=== PATIENT | female | born 1940 | race Caucasian/White ===

== ENCOUNTER 2016-06-06 07:49 | Day surgery (SDC) | payer MEDICARE ==
[~2016-06-06 07:49] MED LIST: ACET500CAP PO; ADVAIR INH; ADVAIR250 INH; ALBUTEROL5 INH; APRES25 PO; APRES50 PO; ASAB PO; ATV1 PO; AZO-CRANBERY450 MG PO; B COMPLETE PO; B121000P IM; BISR PR; BL FLAX SEED1000 MG OR; CINNAMON; CINNAMON PLUS1 EACH PO; CINNAMON PO; CINNAMONPO PO; CLARIT10 PO; CLEOCIN300 MG PO; COZAAR100 MG PO; CYANO1000T PO; DIOVAN320 MG PO; DUONEB INH; EDECRIN 25 MG T25 MG PO; ELOCON CREAM 0.15 GM TOP; FERGON240 MG PO; FERRETTS325 MG PO; FERROUS GLUC325 MG PO; FERROUS GLUCONATE PO; FERROUS SULF325 M1 PO; FISH-EPA1000 MG PO; FOLIC ACID400 MC1 PO; FOLIC ACID800 MCG PO; FOLIC PO; FOSRENOL PO; HUMALOG SC; INSNOVR SC; IRON IV; IRON IV IV; IRON325 MG PO; ISORDIL20 PO; IVFLUCO200 IV; LANTUS SC; LEVAQUIN5T PO; LEVEMFLXPN SC; LEVEMIR SC; LEVOTHYROXIN50 MCG PO; LEVOTHYROXIN88 MCG PO; LIQUID TEARS OPH; LOP25 PO; LOP50 PO; LOSARTAN; LOZOLTAB PO; MIRALAXPKT OR; MIRALAXPKT PO; NOVOLOG SC; PAIN TOP; PAX20 PO; PAXIL30 MG PO; PRAVAC PO; PRAVACHOL40 MG PO; PRILO PO; PRILOSEC40 MG PO; PRIM50B PO; PROAIR HFA INH; PROAIR HFA PO; PROCRIT IM; PROCRIT SC; PROTONIX PO; PROVENTSOL INH; REFRES1 OP; REFRESH OP; REFRESH1 % OPH; REG5 PO; RENVELA800 MG PO; ROCALTROL0.25 MCG OR; ROCALTROL0.25 MCG PO; SB325 PO; SEVE800T PO; SOOTHE EYE DROPS OPH; SPIRIVA INH; SPIRO25 PO; SUPER B COMP PO; SYMBICORT 160/41 INH INH; SYN.05 PO; TEARS NATURA OPH; TOPROL XL PO; TOPXL50 PO; TRIAMCINOLONE C80 GM TOP; VANCO1P IM; VANCO1P IV; VICKS VAPO RUB TOP; VITAMIN B COMPLEX PO; VITAMIN B-121000 MC1 PO; VITAMIN B-121000 MC1 SL; VITAMIN D1000 UNI1 PO; VITAMIN D31000 UNIT PO; VITD PO; Z300 PO; ZANTAC 150 PO; ZANTAC150 MG PO; ZANTAC300 MG PO; ZEASORB-AF2 % TOP; ZENPEP5000 UNIT PO; [UNRECOGNIZED DRUG - OTHER] PO; [UNRECOGNIZED DRUG - OTHER] SC; [UNRECOGNIZED DRUG - REMARK] TOP
== END 2016-06-06 23:59 | disposition home or self-care (01) ==
LOC: DMU 07:49
PROVIDERS: Internal Medicine Gastroenterology
PROC: 0D20XUZ Change Feeding Device in Upper Intestinal Tract, External Approach (ICD-10-PCS; principal; 2016-06-06 08:00)
DX: Z46.59 Encounter for fitting and adjustment of other gastrointestinal appliance and device (principal); R10.33 Periumbilical pain; Z43.1 Encounter for attention to gastrostomy; Z91.040 Latex allergy status; Z88.0 Allergy status to penicillin

== ENCOUNTER 2016-06-18 11:57 | Emergency (ER) | payer MEDICARE ==
[2016-06-18 12:45] LABS: BASOPHILS 0.2 %; BASOPHILS ABSOLUTE 0.02 10/3/uL (0.0-0.16); EOSINOPHILS 0.8 %; EOSINOPHILS ABSOLUTE 0.09 10/3/uL (0.0-0.53); IMMATURE GRANULOCYTES 1.7 %; LYMPHOCYTES 6.3 %; LYMPHOCYTES ABSOLUTE 0.74 10/3/uL (0.67-4.30); MEAN CORPUS HGB CONC 32.1 g/dL (32.0-36.0); MEAN CORPUSCULAR HEMOGLOB 33.7 pg (26.0-34.0); MEAN PLATELET VOLUME 10.6 fL (9.2-13.0); MONOCYTES 11.2 %; MONOCYTES ABSOLUTE 1.32 10/3/uL (0.21-1.20); NEUTROPHILS 79.8 %; NEUTROPHILS ABSOLUTE 9.39 10/3/uL (2.02-8.40); RBC DISTRIBUTION WIDTH 16.3 % (12.0-16.0); RED CELL COUNT 3.15 10/6/uL (4.0-5.6); WHITE BLOOD CELLS 11.8 10/3/uL (4.5-10.5)
[2016-06-18 12:47] LABS: ER CBC TAT 0 Hrs 08 Mins; HEMOGLOBIN 10.6 g/dL (12.0-16.0); MANUAL DIFF NO %; MEAN CORPUSCULAR VOLUME 104.8 fL (80-100); PLATELET COUNT 218 10/3/uL (150-400)
[2016-06-18 12:54] LABS: INTERNATIONAL NORMAL RATI 1.1 UNITS (-); PARTIAL THROMBO TIME 28.3 SEC (22.5-37.2)
[2016-06-18 13:02] LABS: BUN (BLOOD UREA NITROGEN) 41 MG/DL (6-23); CALCIUM, SERUM 9.8 MG/DL (8.5-10.4); CHEST PAIN PROFILE TAT 0 Hrs 25 Mins; CHLORIDE, SERUM 96 MMOL/L (96-112); CO2 (CARBON DIOXIDE) 28 MMOL/L (24-34); CREATININE 3.48 MG/DL (0.55-1.02); GFR AFRICAN AMERICAN 14 ML/MIN (>=60); GFR NON AFRICAN AMERICAN 12 ML/MIN (>=60); GLUCOSE, SERUM 237 MG/DL (60-99); POTASSIUM, SERUM 4.1 MMOL/L (3.5-5.3); SODIUM, SERUM 136 MMOL/L (135-148); TROPONIN I 0.03 NG/ML (<0.05)
[2016-06-18 15:16] LABS: BE (BASE EXCESS) 1.5 MEQ/L (0 +/- 2.5); CARBOXYHEMOGLOBIN 1.3 % (0-3); HEMOBLOGIN CONTENT 10.4 G/DL (12-16); INSTRUMENT SERIAL # 8087; O2 CONTENT 14.6 VOL% (18-24); OPERATOR ID 14335; PCO2 (CO2 TENSION) 41 MMHG (35-45); PO2 (O2 TENSION) 146 MMHG (79-93); SAMPLE Arterial; pH 7.42 (7.37-7.43)
[2016-06-18 15:17] LABS: ALLENS TEST Pos
== END 2016-06-18 17:41 | disposition home or self-care (01) ==
LOC: ER 11:57
PROVIDERS: Emergency Medicine
DX: J30.2 Other seasonal allergic rhinitis (principal); J90 Pleural effusion, not elsewhere classified; J40 Bronchitis, not specified as acute or chronic; Z99.2 Dependence on renal dialysis; I12.9 Hypertensive chronic kidney disease with stage 1 through stage 4 chronic kidney disease, or unspecified chronic kidney disease; N18.9 Chronic kidney disease, unspecified; J44.9 Chronic obstructive pulmonary disease, unspecified; I50.9 Heart failure, unspecified; I48.91 Unspecified atrial fibrillation; E11.9 Type 2 diabetes mellitus without complications; Z87.891 Personal history of nicotine dependence; Z87.01 Personal history of pneumonia (recurrent); Z88.2 Allergy status to sulfonamides; Z88.0 Allergy status to penicillin; Z88.8 Allergy status to other drugs, medicaments and biological substances; Z79.82 Long term (current) use of aspirin; Z79.4 Long term (current) use of insulin; Z79.899 Other long term (current) drug therapy
CPT/HCPCS: 36600; 71020; 80048; 82805; 83735; 83880; 84484; 85025; 85610; 85730; 93005; 94640; 99284; A9270-GY

== ENCOUNTER 2016-07-05 14:03 | Inpatient (IN) | payer MEDICARE ==
--- NOTE | ~2016-07-05 | PREOPHP ---
PreOp History and Physical [facility] [address] [facility] [place]. [address] NAME: AMI DOBSON : 44 STATUS : [facility]#: [id number] AGE: 76 ADM/REG DATE : 07/05/16 MR#: [id number] REPORT SERV DATE: 07/05/16 DICTATED BY: ELVIA BRITO DATE: 07/05/16 REPORT STATUS : Draft TRANSCRIBED BY: KRISTINA DATE: 07/05/16 REASON FOR ADMISSION: 1. Altered mental status. 2. Myoclonic jerks. 3. Hyperkalemia; potassium mildly elevated at 5.1. PLAN: 1. Emergent hemodialysis today to control volume status and correct hyperkalemia. Today is a regular dialysis day. 2. Workup for altered mental status and myoclonic jerks. She will be seen by Neurology. Her Reglan has been placed on hold. She is also on additional antiparkinson medication, which we will hold. She saw Dr. Rodriguez this past and asked for an ammonia level to be drawn and is 38 and normal. We will have Neurology to see her as well. 3. The patient is a DNR by request of the family and if there is no improvement in overall condition in next 24 to 36 hours, we plan to move with hospice. 4. Type 2 diabetes. We will continue insulin regimen. She has recurrent aspiration and has a feeding tube. We will continue her tube feedings. 5. Hypertension. Continue her present antihypertensives. 6. We will continue sliding scale insulin. HISTORY OF PRESENT ILLNESS: History is obtained from the patient's family, unable to get a history from the patient. She is arousable, will attempt to follow simple commands, but is unable to communicate. She is a 76-year-old female, who has been on dialysis since January of last year. She has underlying cardiorenal syndrome and progressed to end-stage renal failure, has been dialyzing on Friday, Friday, and Friday at [place]. She apparently has developed a progressive decline in overall well being over the past four to six weeks culminating in altered mental status and progressive myoclonic jerks that were getting progressively worse. As a result, she saw Dr. Rodriguez in the office , who advised lab work to be performed but not sure as to what the cause of her trouble was. The patient's family brought her into the ER today as the symptoms worsened and her altered mentation continued to decline. According to the son, she has actually been able to ambulate some as of until this past Friday, although that is kind of difficult to comprehend how she could do this. No fever or chills reported. No history of trauma or fall, but she does describe according to the daughter some headaches that have been mainly in the left frontal area. No history of documented seizure-like activity. She has had tremors previously and has been seeing Dr. Rodriguez for this in the past but this is more prominent in the form of myoclonic jerks. PAST MEDICAL HISTORY: 1. End-stage renal failure. 2. Diastolic/systolic CHF. 3. Mitral regurgitation. 4. Recurrent aspiration pneumonia or MRSA sepsis. 5. Recurrent ESBL E coli UTI infections. 6. PEG tube placement. 7. Chronic atrial fibrillation, off Coumadin. PreOp History and Physical [address] [address] NAME: AMI DOBSON : 44 STATUS : [facility] ER PAT#: [id number] AGE: 76 ADM/REG DATE : 07/05/16 MR#: [id number] REPORT SERV DATE: 07/05/16 DICTATED BY: ELVIA BRITO DATE: 07/05/16 REPORT STATUS : Draft TRANSCRIBED BY: KRISTINA DATE: 07/05/16 8. Obstructive sleep apnea. 9. COPD. 10.Hypertension. 11.Diabetes. 12.Hypothyroidism. SOCIAL HISTORY: No recreational drug use. No smoking. No alcohol use. MEDICATIONS: Home medications have been reviewed and include long-acting insulins in the form of Lantus and Humalog. She is on Synthroid. She is on metoclopramide. She is on long acting metoprolol. ALLERGIES: INCLUDE ELIDA INHIBITORS, PENICILLIN, MACROLIDE, SULFA DRUGS, NIFEDIPINE, LASIX, AND VALACYCLOVIR. REVIEW OF SYSTEMS: As per the HPI. PHYSICAL EXAMINATION: GENERAL: She is a debilitated, elderly female, obese with obvious myoclonic jerks that are visible. She will open her eyes and attempt to follow commands but limited communication noted. VITAL SIGNS: Blood pressure is 122/69, heart rate was 116, and her temperature was 97.9. HEENT: Pupils are reacting to light. Oral mucosa was dry. There is no pharyngitis. She has these obvious myoclonic jerks, generalized upper and lower limbs. There is some rigidity to her muscle tone. There are no focal deficits. HEART: Heart sounds 1 and 2 are heard. No rub. CHEST: Clear to auscultation. She has a right IJ Perma-Cath. ABDOMEN: She has a PEG tube. There is no tenderness, guarding, or rebound. Bowel sounds are normal. EXTREMITIES: Peripheral edema 1+ is noted. She has a bruising on the left leg as well. DIAGNOSTIC DATA: CT scan of the head done in the ER shows no acute infarct, stable moderate atrophy and white matter disease noted. Sodium 133, potassium 5.1, chloride 95, CO2 27, BUN 71, creatinine 5.3, calcium is pending, hemoglobin is 10.8, hematocrit 33.2, white count 16.0, platelet count 205,000. MG/MODL Elvia Brito M.D. / [id number] CC: PreOp History and Physical [address] [address] NAME: AMI DOBSON : 42 STATUS : [facility] PAT#: [id number] AGE: 76 ADM/REG DATE : 07/05/16 MR#: [id number] REPORT SERV DATE: 07/05/16 DICTATED BY: ELVIA BRITO DATE: 07/05/16 REPORT STATUS : Draft TRANSCRIBED BY: MODL DATE: 07/05/16 DEYA TABARES
--- NOTE | ~2016-07-05 | CN ---
Consultation Report [facility] [address] [place]. [address] NAME: AMI CEJA : 44 STATUS : ADM IN PAT#: [id number] AGE: 76 ADM/REG DATE : 07/05/16 MR#: [id number] REPORT SERV DATE: 07/10/16 DICTATED BY: JEFF MARIN DATE: 07/10/16 REPORT STATUS : Draft TRANSCRIBED BY: MODRachel DATE: 07/10/16 GI CONSULTATION DATE OF CONSULTATION: 07/10/2016 REASON FOR CONSULTATION: Evaluation and management of leaking PEG tube as well as increased residuals. HISTORY OF PRESENT ILLNESS: Ms. Ceja is a 76-year-old female patient known to Dr. Rober Young, who presented to [facility] on 07/05/2016 with a chief complaint of altered mental status, myoclonic jerking as well as findings of hyperkalemia. She underwent emergent hemodialysis on the day of admission. She had a Neurology consult. She had been on a regimen of Reglan, which has been identified as potential cause for her tardive dyskinesia and jerking, it since has been discontinued. Her mental status is back to baseline per the daughter's report. She has a history of dysphagia being seen by Dr. Flores in 12/2015 with resultant PEG tube placement. She was seen by Dr. Young, 06/06/2016 for exchange of her PEG tube. He placed a 26-Ethiopian. This was done secondary to some leakage around it and just needing an all together new feeding tube placed. This was done without difficulty. Since that time the daughter states that she has had very minimal to none drainage from the tube. Since coming in, she has had increased drainage as well as residuals around 120 mL per the nurse that sits with the patient today. Her tube feedings have been held since yesterday. No abdominal imaging has been done. She has been placed on MiraLAX, which she typically takes in the outpatient setting. She, per the daughter, only had a very small bowel movement overnight. The patient denies any true abdominal discomfort. No nausea or vomiting has been reported. I have discussed with the patient as well as the patient's daughter, who is present at the bedside. We will have a portable KUB done. She has been started on MiraLAX and is to receive lactulose; however, we will increase her MiraLAX to twice a day as well as give her some Dulcolax suppositories. Once she has good bowel movements, we will resume her tube feeding. I did tighten the PEG tube flush to the skin if she needs something for prokinetic use we would try erythromycin. PAST MEDICAL HISTORY: End-stage renal disease, on dialysis; mitral regurgitation; aspiration pneumonia; status post PEG; MRSA sepsis; congestive heart failure, both diastolic and systolic; atrial fib; COPD; hypertension; type 2 diabetes; peripheral neuropathy; hypothyroidism. SOCIAL HISTORY: Past tobacco. No alcohol or illicits. SURGICAL HISTORY: Right shoulder surgery, left breast lumpectomy, hemothorax, drainage, PEG tube placement. FAMILY HISTORY: Noncontributory from a GI standpoint. ALLERGIES: CONSIST OF MONOPRIL, PENICILLIN, MACROLIDE ANTIBIOTICS, ADALAT, BRAN, LASIX, Consultation Report [address] [address] NAME: AMI CEJA : 44 STATUS : ADM IN [facility]#: [id number] AGE: 76 ADM/REG DATE : 07/05/16 MR#: [id number] REPORT SERV DATE: 07/10/16 DICTATED BY: JEFF MARIN DATE: 07/10/16 REPORT STATUS : Draft TRANSCRIBED BY: KRISTINA DATE: 07/10/16 BUMEX, VALACYCLOVIR, AND SULFA. HOME MEDICATIONS: Albuterol, Proventil, Zyloprim, liquid tears, aspirin, Symbicort, Apresoline, Levemir, Fosrenol, Synthroid, Ativan, Protonix, Paxil, MiraLAX, Pravachol, Mysoline, sodium bicarbonate, and triamcinolone cream. REVIEW OF SYSTEMS: 10-point review of systems obtained pertinent positives addressed in the history of present illness. PERTINENT LABORATORY DATA: Sodium 135, potassium is 4.9, BUN is 89, creatinine 6.04. White count 8.2, hemoglobin 11.2, hematocrit 35.2, platelet count 168 with an INR of 1.2. PHYSICAL EXAMINATION: VITAL SIGNS: Temperature 97.5, pulse 100, respirations 17, blood pressure 96/53. NEURO: Reveals a chronically ill-appearing obese female, resting in bed. Her eyes are open. She has a notable right-sided facial droop. GENERAL: She is cooperative. She is in no acute distress. She knows she is at [facility] and she recognizes her daughter. HEAD, EARS, EYES, NOSE, AND THROAT: Anicteric. Pupils equal, round, reactive to light and accommodation. Normocephalic, atraumatic. NECK: Supple neck. LUNGS: Coarse with central congestion and positive cough and nonproductive. CARDIOVASCULAR SYSTEM: Regular rate and rhythm. Tachycardic. ABDOMEN: Soft and obese. PEG tube site without drainage. No redness. No erythema. EXTREMITIES: She has upper and lower extremity ecchymosis. SKIN: Frail, but dry and intact. ASSESSMENT: 1. Dysphagia with percutaneous endoscopic gastrostomy, now leaking. 2. Increased tube feed residuals. 3. Constipation. 4. Tardive dyskinesia secondary to Reglan. 5. Obstructive sleep apnea, obesity Pickwickian syndrome. 6. End-stage renal disease, on hemodialysis. 7. Type 2 diabetes. PLAN: 1. Portal KUB. 2. Increase MiraLAX to twice a day. 3. Dulcolax suppository twice a day for 24 hours. 4. Resume tube feeding in the morning. Further recommendations to follow. Consultation Report [address] [place]. [address] NAME: AMI CEJA : 44 STATUS : ADM IN [facility]#: [id number] AGE: 76 ADM/REG DATE : 07/05/16 MR#: [id number] REPORT SERV DATE: 07/10/16 DICTATED BY: JEFF MARIN DATE: 07/10/16 REPORT STATUS : Draft TRANSCRIBED BY: KRISTINA DATE: 07/10/16 DEVONTE/KRISTINA LENNIE Zazueta / [id number] CC: Jerardo Mena Dale Ray
--- NOTE | ~2016-07-05 | DS ---
Discharge Summary [address] [facility]. [address] NAME: AMI DOBSON : 44 STATUS : DIS IN PAT#: [id number] AGE: 76 ADM/REG DATE : 07/05/16 MR#: [id number] REPORT SERV DATE: 08/01/16 DICTATED BY: JOSÉ MARCH DATE: 07/29/16 REPORT STATUS : Draft TRANSCRIBED BY: KRISTINA DATE: 07/29/16 Data Collection from hospitalization DISCHARGE DIAGNOSES: 1. End-stage renal disease. 2. Constipation. 3. Dysphagia. 4. Obstructive sleep apnea. 5. Obesity. 6. Type 2 diabetes mellitus. 7. Debility. 8. Hypertension. 9. Hypothyroidism. 10.Chronic obstructive pulmonary disease. 11.Chronic atrial fibrillation. 12.Mitral regurgitation. 13.Diastolic/systolic heart failure. CONSULTATIONS: Dr. Valeria Fernandez and Mino Perez. PROCEDURES: 1. CT scan of the brain without contrast, 07/05/2016. 2. MRI of the brain without contrast, 07/10/2016. 3. Contrast injection into the gastrostomy tube, 07/15/2016. 4. Electroencephalogram, 07/07/2016. MEDICATIONS: Zyloprim 300 mg with lunch, aspirin 81 mg daily, vitamin D 50,000 units every seven days, NovoLog injection insulin as instructed, Isordil 20 mg at 9 a.m., lactulose 30 mL daily-hold for loose stools, Fosrenol 500 mg twice a day, Synthroid 50 mcg daily, Lopressor 25 mg twice a day, Protonix 40 mg before breakfast, Paxil 20 mg with supper, MiraLAX one packet twice a day, Mysoline 50 mg twice a day, Symbicort two puffs via inhaler twice a day, DuoNebs 1 nebulized inhaler three times a day as needed, Proventil one nebulized inhaler every four hours as needed, Artificial Tears one drop at bedtime as needed, triamcinolone one application topically twice a day as needed. CONDITION ON DISCHARGE: Stable. DISPOSITION: The patient was discharged home to be followed by [facility]. HOSPITAL COURSE: This is a 76-year-old female who has been on dialysis since January of last year. She has underlying cardiorenal syndrome and had progressed to end-stage renal failure. She was dialyzing on Mondays, Wednesdays, and Fridays. She apparently developed a progressive decline in her overall well being over the past 4 to 6 weeks culminating in an altered mental status and progressive myoclonic jerks that were getting progressively worse. She saw Dr. Rodriguez in the office on prior to admission who advised lab work to be performed but was not sure as to what the cause of her trouble was. Her family brought her to the emergency room on the day of this admission as her symptoms worsened, and her altered mentation continued to decline. She has been able to ambulate some until Friday prior to Discharge Summary [address] [place]. [address] NAME: AMI DOBSON : 44 STATUS : DIS IN [facility]#: [id number] AGE: 76 ADM/REG DATE : 07/05/16 MR#: [id number] REPORT SERV DATE: 08/01/16 DICTATED BY: JOSÉ MARCH DATE: 07/29/16 REPORT STATUS : Draft TRANSCRIBED BY: KRISTINA DATE: 07/29/16 this admission. She had no documented seizure-like activity. She has had tremors previously and had seen Dr. Rodriguez for this in the past, but this was more prominent in the form of myoclonic jerks. CT scan of the head done in the emergency room showed no acute infarct, stable moderate atrophy, and white matter disease. She was admitted to the hospital at this time for further evaluation and treatment. Upon admission, her white blood cell count was 16. Creatinine level was 5.3. The following day, she was seen by Dr. Valeria Fernandez regarding abnormal jerking and to rule out seizures. The patient had been noncompliant in using her CPAP. She had tested positive for obstructive sleep apnea several years ago. She has no history of recent head trauma and no history of stroke or stroke-like symptoms. White count was 12.7. She has had a recent increase in the abnormal movements and myoclonic jerking. We were going to rule out myoclonic seizures versus tardive movement disorder secondary to Reglan-metoclopramide; however, in this patient in the setting of end-stage renal disease and electrolyte imbalance, she has an increased risk of developing abnormal movements and seizures. It appears that the patient is hypersomnolent. She does have severe obstructive sleep apnea. We would rule out hypoventilation syndrome-Pickwickian syndrome. IV Keppra was going to be started, and EEG was requested. Cogentin was started. On the , her myoclonus had improved. She was still somnolent. Metoprolol was decreased. EEG was performed. This was an abnormal EEG characterized by the presence of slowing and disorganization of cerebral activity and the presence of biphasic and triphasic waveforms suggestive of underlying metabolic encephalopathy. Intermittent sharp in appearance wave forms of low voltage were seen during sleep. This activity, however, did not correspond to myoclonic jerking that the patient was having. The patient appeared extremely somnolent throughout this study. This EEG was compatible with diffuse cerebral dysfunction suggestive of the presence of metabolic encephalopathy. On 07/08/2016, hemodialysis therapy was performed. She did have some constipation. There was some increased residual. She had no edema. Keppra was decreased. Reglan was stopped. She could follow simple commands. Some myoclonus was noted. She does have vitamin D deficiency. This was going to be replaced. It was felt that she would need to undergo an outpatient sleep study. It was felt that her current dyskinesia was secondary to Reglan. Keppra was continued. On 07/10/2016, an MRI of the brain without contrast was performed. There were stable mild chronic small vessel ischemic change and volume loss involving the supra and infratentorial compartment. No acute findings were seen. She did have a small bowel movement. Tap water enema was going to be given. There was a high residual in the PEG tube. She was seen by Mino Perez for evaluation and management of leaking PEG tube as well as increased residuals. Has a long history of dysphagia. The patient denied any true abdominal discomfort. No nausea or vomiting was reported. A portable KUB was going to be performed. The patient was started on MiraLAX and was going to receive lactulose. MiraLAX was going to be increased. She was going to be given some Dulcolax suppository. Once she has good bowel movements, we would resume her tube feedings. The PEG tube was tightened flush to the skin. If she needed something for prokinetic use, we would try erythromycin. Tube feedings would be resumed the following morning. She did complain of a headache. She seemed to be much more alert and awake. Her Keppra dose was increased. The next day, she seemed to be more awake. She was requesting water. Her KUB was negative. Her constipation had resolved. Tube feedings were restarted. Her PEG tube would be monitored for leakage. Discharge Summary [address] [place]. [address] NAME: AMI DOBSON : 44 STATUS : DIS IN PAT#: [id number] AGE: 76 ADM/REG DATE : 07/05/16 MR#: [id number] REPORT SERV DATE: 08/01/16 DICTATED BY: JOSÉ MARCH DATE: 07/29/16 REPORT STATUS : Draft TRANSCRIBED BY: KRISTINA DATE: 07/29/16 MRI of the brain had shown no acute events. Depakote was also being given. Thiamin was provided on 07/12/2016. There was no leaking from the PEG tube. Hemodialysis therapy was being performed. Beta rianna was added to her regimen. Myoclonus had improved with Depakote. IV Solu-Medrol continued as well as Keppra and Depakote for now. On 07/13/2016, she had no new complaints. She was having bowel movements. She had no edema. Solu-Medrol continued. Keppra was decreased. Depakote was discontinued. Prednisone was being given. Dr. Garza increased Keppra after Depakote was discontinued. She did not feel well in general. She was tolerating tube feedings. The patient did have some coughing overnight which resulted in dislodgement of the PEG tube. Steroid taper was going to be performed over the next couple of days. Supportive care continued. Cogentin was stopped. Prednisone was continued. Her prednisone was going to be decreased by 10 mg each week. She was tolerating tube feedings. Hemodialysis therapy continued. On 07/17/2016, white blood cell count had decreased with steroid taper. She would follow simple commands. She had 1 to 2+ edema. The tube began leaking out copious amounts of tube feedings. The PEG tube was removed, and a bandage was placed. A repeat swallow study was requested. The patient was too lethargic to participate in a bedside swallow study. On the , she did have some maroon stool. Hemoglobin level was 9.5. Protein pump inhibitor was increased. Stool studies were going to be checked. Discharge planning was performed. On 07/19/2016, she had good pain control. She had no edema. Bedside swallow study was performed by Speech/Language Pathology. She had overt signs and symptoms of aspiration with all oral trials. Aspiration precautions were in place. A referral was made to [facility]. Hospice services and philosophies were discussed. Everyone was in agreement for the patient to go home with hospice care. Discharge instructions were given. Due to her stable condition, she was discharged home to be followed by [facility]. Information collected by: Shelia Quintanilla I submit the above information as my discharge summary. ANTHONY/KRISTINA José March M.D. / [id number] CC: LENNIE Bocanegra [facility]
--- NOTE | ~2016-07-05 | EEG ---
Electroencephalogram [address] [place]. [address] NAME: AMI DOBSON : 44 STATUS : ADM IN PAT#: [id number] AGE: 76 ADM/REG DATE : 07/05/16 MR#: [id number] REPORT SERV DATE: 07/09/16 DICTATED BY: VALERIA RAYGOZA DATE: 07/09/16 REPORT STATUS : Draft TRANSCRIBED BY: KRISTINA DATE: 07/09/16 INTERPRETING PHYSICIAN: Valeria Raygoza MD, Neurology. REASON FOR EEG: Myoclonic jerking, rule out seizures. DESCRIPTION: 23 surface electrodes, 10-20 international placement was used. The patient was noted to be drowsy and asleep throughout the study. Photic stimulation was performed. Video monitoring was utilized. FINDINGS: The background activity consisted of moderate-voltage, poorly organized 6-8 cycles per second located in the posterior head regions. This activity did not attenuate very well with the eye opening maneuvers. Slower frequencies in the theta range were noted scattered throughout. The patient appeared to be asleep through most of the recording. Moderate amount of paroxysmal appearing, low-voltage, spike-like activity was seen in central regions. Photic stimulation seemed to accentuate this activity. Large amount of biphasic and triphasic waveforms was noted, suggestive of underlying metabolic encephalopathy. Intermittent myoclonic jerking was observed on the video monitor. These jerks, however, did not correspond to paroxysmal activity on the EEG. The patient's personnel monitor showed sinus tachycardia, heart rate of approximately 120 beats per minute. Moderate amount of low- voltage beta range activity was also seen scattered throughout. Intermittent sleep apnea was observed. IMPRESSION: ABNORMAL EEG CHARACTERIZED BY PRESENCE OF SLOWING AND DISORGANIZATION OF CEREBRAL ACTIVITY AND PRESENCE OF BIPHASIC AND TRIPHASIC WAVEFORMS, SUGGESTIVE OF UNDERLYING METABOLIC ENCEPHALOPATHY. INTERMITTENT [id number] WAVEFORMS OF LOW-VOLTAGE WERE SEEN DURING SLEEP. THIS ACTIVITY, HOWEVER, DID NOT CORRESPOND TO MYOCLONIC JERKING THAT THE PATIENT WAS HAVING. THE PATIENT APPEARED EXTREMELY SOMNOLENT THROUGHOUT THIS STUDY. THIS EEG IS COMPATIBLE WITH DIFFUSE CEREBRAL DYSFUNCTION, SUGGESTIVE OF PRESENCE OF METABOLIC ENCEPHALOPATHY. CLINICAL CORRELATION IS RECOMMENDED. RICK/KRISTINA Valeria Raygoza MD / [id number] CC: Jerardo Mena Dale Ray
--- NOTE | ~2016-07-05 | CN ---
Consultation Report [facility] [address] [place] [place]. [address] NAME: AMI DOBSON : 44 STATUS : ADM IN PAT#: [id number] AGE: 76 ADM/REG DATE : 07/05/16 MR#: [id number] REPORT SERV DATE: 07/06/16 DICTATED BY: VALERIA FERNANDEZ DATE: 07/06/16 REPORT STATUS : Draft TRANSCRIBED BY: MODRachel DATE: 07/06/16 NEUROLOGICAL EVALUATION DATE OF CONSULTATION: 07/06/2016 REASON FOR NEUROLOGICAL EVALUATION: Abnormal jerking, rule out seizures. HISTORY OF PRESENT ILLNESS: This is a 76-year-old female with known history of end-stage renal disease, on hemodialysis; history of diabetes mellitus with neurological complication of severe neuropathy; history of probable obstructive sleep apnea, noncompliant with CPAP; severe obesity, who was admitted with altered mental status and recurrent episodes of jerking of her muscles. The patient's family noted in the last two weeks, the patient has had uncontrollable jerking, which involved intermittently her arms and occasionally arms and legs. At that time, the patient appears to be "normal." These episodes have not lessened. The patient has been on Reglan since December of last year. The patient has progressive decline in her health since December of last year. She has been placed on dialysis and has followed with [facility] in [place], [place]. The patient had seen Dr. Rodriguez from Neurology, who requested to check her ammonia level, which was done during this admission and was reported to be 38. As per son, the patient has been ambulating with help until last Friday; however, since then, has been mainly remaining in bed, sleeping on and off. The patient has been noncompliant with using of her CPAP, was tested for obstructive sleep apnea several years ago. The patient's several siblings have history of diabetes mellitus and extreme obesity. The sister who was present in the patient's room while the patient was being examined was also diagnosed with obstructive sleep apnea. As per the patient's son and her sister, there is no history of recent head trauma, no history of stroke or stroke- like symptoms. The patient has not been treated with any medications recently; however, has been persistently taking Reglan for her GI symptoms since last December. The patient's tremors have increased gradually until the patient started having myoclonic jerking in the past two to three weeks. PAST MEDICAL HISTORY: 1. End-stage renal disease, on hemodialysis. 2. Mitral regurgitation. 3. History of recurrent aspiration pneumonia. 4. MRSA sepsis. 5. Diastolic and systolic congestive heart failure. 6. The patient is status post PEG placement, chronic atrial fibrillation, has been off Coumadin, unclear why. 7. COPD. 8. Hypertension. 9. Diabetes mellitus with neurological complications, severe peripheral neuropathy. 10.History of hypothyroidism. SOCIAL HISTORY: Remote history of smoking 50 years ago. No history of alcohol use. Consultation Report [place] [id number] [facility] [place]. [address] NAME: AMI DOBSON : 44 STATUS : ADM IN [facility]#: [id number] AGE: 76 ADM/REG DATE : 07/05/16 MR#: [id number] REPORT SERV DATE: 07/06/16 DICTATED BY: VALERIA FERNANDEZ DATE: 07/06/16 REPORT STATUS : Draft TRANSCRIBED BY: KRISTINA DATE: 07/06/16 CURRENT MEDICATIONS: Include aspirin chewable 81 mg, insulin long-acting and short-acting, metoprolol, paroxetine 20 mg, levothyroxine 0.05 mg, isosorbide 20 mg p.o. once a day, allopurinol 100 mg p.o. daily. Reglan was discontinued yesterday. REVIEW OF SYSTEMS: As mentioned above. Rest of the review of systems included the patient having difficulty with her memory and occasional slurring of her speech. No weakness or numbness of her arms and legs was reported. The patient does have control of her bladder, although there was difficulty getting to the bathroom. The patient's weight has remained persistently high in the past several years. The patient has been on PEG tube feeding, and as per son, has gained a couple of pounds in the last two to three months. The rest of 14-point of review of system was negative. PHYSICAL EXAMINATION: GENERAL: The patient was somnolent, but aroused when stimulated, attempted to answer questions; however, would fall asleep intermittently. VITAL SIGNS: Show blood pressure 133/85, pulse was 119, temperature was 98.5, respirations 20. As per the patient's son, the patient's dry weight is 93 kg. The patient is approximately 5 feet 2 inches. HEAD AND NECK: Showed her to be normocephalic. There was no evidence of trauma. The patient's body habitus was compatible with Pickwickian appearance, truncal obesity, short stature, short neck. ENT: A very small airway, Mallampati class 4. EYE: Sclerae were not icteric. Conjunctivae were pink. ENT: As mentioned above. NECK: Supple. There was no Kernig or Brudzinski. Cervical range of motion was not impaired. CHEST: Symmetrical. LUNGS: Showed decreased breath sounds throughout. BREASTS: Not examined. ABDOMEN: Extremely obese, soft, nontender. Bowel sounds were hypoactive, but present. EXTREMITIES: Showed all of the areas of ecchymoses in distal legs and no significant edema was noted in the lower extremities. Peripheral pulses were decreased, but present. SKIN: As mentioned above. NEUROLOGICAL EXAMINATION: The patient was somnolent, but arousable. Oriented to self, partially oriented to place and partially oriented to time, recognized her son and her daughter by name. Conversation was limited as the patient was falling asleep continuously. Intermittent jerking movements were observed every 20 to 40 seconds involving arms and intermittently every couple of minutes a whole body jerk which appeared to be isolated, was observed. At that time, the patient would squint her eyes and would not answer the questions. Strength appeared intact throughout, although the patient had decreased mobility secondary to decreased cooperation from her mental status. Deep tendon reflexes were absent in lower extremities, trace in upper extremities. Sensory exam; the patient definitely had signs of profound peripheral neuropathy distally in the lower extremities. Cerebellar exam; the patient could not perform. Gait could not be tested. Consultation Report [place] [id number] [facility] [place]. [address] NAME: AMI DOBSON : 44 STATUS : ADM IN [facility]#: [id number] AGE: 76 ADM/REG DATE : 07/05/16 MR#: [id number] REPORT SERV DATE: 07/06/16 DICTATED BY: VALERIA FERNANDEZ DATE: 07/06/16 REPORT STATUS : Draft TRANSCRIBED BY: MODL DATE: 07/06/16 LABORATORY STUDIES: From today showed sodium of 142, potassium 4.1, chloride 105, BUN 36. Prior to dialysis yesterday, BUN was 71, BUN prior to dialysis was 5.32, after dialysis 3.75. Glomerular filtration rate prior to dialysis 9, after dialysis 13. Glucose 92, calcium 10.2, magnesium 2.6, and phosphorus 2.5. WBC count 12.7, hemoglobin 12.3, hematocrit 39.8, and platelet count 222,000. PT/INR was 1.2. IMPRESSION: Recent increase of abnormal movements and myoclonic jerking, rule out myoclonic seizures versus tardive movement disorder secondary to Reglan-metoclopramide; however, in this patient in the setting of end-stage renal disease and electrolyte imbalance, the patient has increased risk of developing abnormal movements and seizures. Severe obstructive sleep apnea, appears the patient is hypersomnolent, would rule out hypoventilation syndrome-Pickwickian syndrome. Congestive heart failure, end-stage renal disease, on hemodialysis. Would recommend to start the patient on Keppra 1000 mg b.i.d., IV infused now, until the patient is able to obtain an EEG and we will order it for today or tomorrow. Continue Keppra. Start Cogentin 0.5 mg p.o. b.i.d. via PEG tube 0.5 mg q.12 hours. Outpatient, repeat polysomnography study with CPAP or BiPAP titration, monitor for hypoxemia, and respiratory failure, morbid obesity, renal disease with complication of severe peripheral neuropathy. To follow with outpatient Neurology, Dr. Rodriguez. Thank you for allowing us to participate in this patient's care. RKA/MODL Valeria Fernandez MD / [id number] CC: Jerardo Mena DALE RAY
[2016-07-05 14:12] LABS: BASOPHILS 0.2 %; EOSINOPHILS 0.7 %; EOSINOPHILS ABSOLUTE 0.12 10/3/uL (0.0-0.53); ER CBC TAT 0 Hrs 03 Mins; HEMATOCRIT 33.2 % (36.0-48.0); HEMOGLOBIN 10.8 g/dL (12.0-16.0); IMMATURE GRANULOCYTES 0.8 %; IMMATURE GRANULOCYTES ABSOLUTE 0.13 10/3/uL (0.0-0.11); LYMPHOCYTES 6.1 %; LYMPHOCYTES ABSOLUTE 0.97 10/3/uL (0.67-4.30); MEAN CORPUS HGB CONC 32.5 g/dL (32.0-36.0); MEAN CORPUSCULAR HEMOGLOB 34.1 pg (26.0-34.0); MEAN CORPUSCULAR VOLUME 104.7 fL (80-100); MEAN PLATELET VOLUME 11.1 fL (9.2-13.0); MONOCYTES 2.9 %; MONOCYTES ABSOLUTE 0.46 10/3/uL (0.21-1.20); NEUTROPHILS 89.3 %; NEUTROPHILS ABSOLUTE 14.32 10/3/uL (2.02-8.40); PLATELET COUNT 205 10/3/uL (150-400); RBC DISTRIBUTION WIDTH 16.7 % (12.0-16.0); RED CELL COUNT 3.17 10/6/uL (4.0-5.6)
[2016-07-05 14:14] LABS: BASOPHILS ABSOLUTE 0.03 10/3/uL (0.0-0.16); MANUAL DIFF NO %
[2016-07-05 14:28] LABS: A/G RATIO 0.7 (0.7-1.9); ALBUMIN 2.8 G/DL (3.5-5.0); ALKALINE PHOSPHATASE 98 U/L (45-117); BUN (BLOOD UREA NITROGEN) 71 MG/DL (6-23); CALCIUM, SERUM 9.8 MG/DL (8.5-10.4); CHLORIDE, SERUM 95 MMOL/L (96-112); CO2 (CARBON DIOXIDE) 27 MMOL/L (24-34); CREATININE 5.32 MG/DL (0.55-1.02); DIRECT BILIRUBIN < 0.1 MG/DL (0.0-0.4); GFR AFRICAN AMERICAN 9 ML/MIN (>=60); GFR NON AFRICAN AMERICAN 7 ML/MIN (>=60); GLOBULIN 4.2 G/DL (2.5-4.1); GLUCOSE, SERUM 250 MG/DL (60-99); INDIRECT BILIRUBIN(NOT ORDER) 0.4 MG/DL (0.1-0.9); POTASSIUM, SERUM 5.1 MMOL/L (3.5-5.3); SGOT(AST) 33 U/L (5-40); SGPT(ALT) 18 U/L (5-65); SODIUM, SERUM 133 MMOL/L (135-148); TOTAL BILIRUBIN 0.5 MG/DL (0-1.2)
[2016-07-05 14:30] LABS: BAND NEUTROPHILS 1 %; EOSINOPHILS 1 %; EOSINOPHILS ABSOLUTE (CALC) 0.16 10/3/uL (0.0-0.53); ER DIFF TAT 0 Hrs 21 Mins; LYMPHOCYTES 4 %; LYMPHOCYTES ABSOLUTE (CALC) 0.64 10/3/uL (0.67-4.30); MACROCYTES 1+ (5-10/OIF) (0-5/OIF); MONOCYTES 6 %; MONOCYTES ABSOLUTE (CALC) 0.96 10/3/uL (0.21-1.20); NEUTROPHILS ABSOLUTE (CALC) 14.24 10/3/uL (2.02-8.40); PLATELET ESTIMATE ADQ (ADEQUATE); SEGMENTED NEUTROPHIL (0) 88 %; TOTAL NUCLEATED CELLS 100
[2016-07-06 08:33] LABS: BASOPHILS 0.2 %; BASOPHILS ABSOLUTE 0.02 10/3/uL (0.0-0.16); EOSINOPHILS 1.5 %; EOSINOPHILS ABSOLUTE 0.19 10/3/uL (0.0-0.53); HEMOGLOBIN 12.3 g/dL (12.0-16.0); IMMATURE GRANULOCYTES 0.6 %; IMMATURE GRANULOCYTES ABSOLUTE 0.08 10/3/uL (0.0-0.11); LYMPHOCYTES 6.2 %; LYMPHOCYTES ABSOLUTE 0.79 10/3/uL (0.67-4.30); MEAN CORPUS HGB CONC 30.9 g/dL (32.0-36.0); MEAN CORPUSCULAR HEMOGLOB 33.2 pg (26.0-34.0); MEAN CORPUSCULAR VOLUME 107.6 fL (80-100); MEAN PLATELET VOLUME 10.7 fL (9.2-13.0); MONOCYTES 13.8 %; MONOCYTES ABSOLUTE 1.74 10/3/uL (0.21-1.20); NEUTROPHILS 77.7 %; NEUTROPHILS ABSOLUTE 9.83 10/3/uL (2.02-8.40); PLATELET COUNT 222 10/3/uL (150-400); RBC DISTRIBUTION WIDTH 16.9 % (12.0-16.0); WHITE BLOOD CELLS 12.7 10/3/uL (4.5-10.5)
[2016-07-06 08:35] LABS: HEMATOCRIT 39.8 % (36.0-48.0); MANUAL DIFF NO %
[2016-07-06 08:41] LABS: INTERNATIONAL NORMAL RATI 1.2 UNITS (-); PROTIME (NOT ORD) 14.7 SEC (12.0-14.5)
[2016-07-06 08:51] LABS: ALBUMIN 3.2 G/DL (3.5-5.0); ALKALINE PHOSPHATASE 107 U/L (45-117); BUN (BLOOD UREA NITROGEN) 36 MG/DL (6-23); CALCIUM, SERUM 10.2 MG/DL (8.5-10.4); CHLORIDE, SERUM 105 MMOL/L (96-112); CO2 (CARBON DIOXIDE) 28 MMOL/L (24-34); CREATININE 3.75 MG/DL (0.55-1.02); DIRECT BILIRUBIN < 0.1 MG/DL (0.0-0.4); GFR AFRICAN AMERICAN 13 ML/MIN (>=60); GFR NON AFRICAN AMERICAN 11 ML/MIN (>=60); GLUCOSE, SERUM 92 MG/DL (60-99); INDIRECT BILIRUBIN(NOT ORDER) 0.4 MG/DL (0.1-0.9); PHOSPHORUS, SERUM 2.5 MG/DL (2.5-4.5); POTASSIUM, SERUM 4.1 MMOL/L (3.5-5.3); SGOT(AST) 15 U/L (5-40); SGPT(ALT) 18 U/L (5-65); SODIUM, SERUM 142 MMOL/L (135-148); TOTAL BILIRUBIN 0.5 MG/DL (0-1.2); TOTAL PROTEIN 7.7 G/DL (6.0-8.5)
[2016-07-06] MEDS ORDERED: LEVEMIR SQ (14:03)
[2016-07-07 11:28] LABS: BASOPHILS 0.1 %; BASOPHILS ABSOLUTE 0.01 10/3/uL (0.0-0.16); EOSINOPHILS 1.2 %; EOSINOPHILS ABSOLUTE 0.15 10/3/uL (0.0-0.53); HEMATOCRIT 37.3 % (36.0-48.0); HEMOGLOBIN 11.6 g/dL (12.0-16.0); IMMATURE GRANULOCYTES 0.4 %; IMMATURE GRANULOCYTES ABSOLUTE 0.05 10/3/uL (0.0-0.11); LYMPHOCYTES 10.3 %; LYMPHOCYTES ABSOLUTE 1.27 10/3/uL (0.67-4.30); MEAN CORPUS HGB CONC 31.1 g/dL (32.0-36.0); MEAN CORPUSCULAR HEMOGLOB 33.6 pg (26.0-34.0); MEAN CORPUSCULAR VOLUME 108.1 fL (80-100); MEAN PLATELET VOLUME 10.6 fL (9.2-13.0); MONOCYTES 4.7 %; MONOCYTES ABSOLUTE 0.58 10/3/uL (0.21-1.20); NEUTROPHILS 83.3 %; NEUTROPHILS ABSOLUTE 10.29 10/3/uL (2.02-8.40); PLATELET COUNT 168 10/3/uL (150-400); RBC DISTRIBUTION WIDTH 17.1 % (12.0-16.0); RED CELL COUNT 3.45 10/6/uL (4.0-5.6); WHITE BLOOD CELLS 12.4 10/3/uL (4.5-10.5)
[2016-07-07 11:29] LABS: MANUAL DIFF NO %
[2016-07-07 12:15] LABS: BUN (BLOOD UREA NITROGEN) 68 MG/DL (6-23); CALCIUM, SERUM 10.4 MG/DL (8.5-10.4); CHLORIDE, SERUM 100 MMOL/L (96-112); CO2 (CARBON DIOXIDE) 29 MMOL/L (24-34); POTASSIUM, SERUM 4.9 MMOL/L (3.5-5.3); SODIUM, SERUM 139 MMOL/L (135-148)
[2016-07-07 12:16] LABS: CREATININE 5.74 MG/DL (0.55-1.02); FOLATE 75.9 NG/ML (>5.2); GFR AFRICAN AMERICAN 8 ML/MIN (>=60); GFR NON AFRICAN AMERICAN 7 ML/MIN (>=60); GLUCOSE, SERUM 244 MG/DL (60-99); PHOSPHORUS, SERUM 3.8 MG/DL (2.5-4.5)
[2016-07-07 13:45] LABS: PROCALCITONIN 21.95 ng/mL (<0.5)
[2016-07-07 14:28] LABS: BE (BASE EXCESS) 2.8 MEQ/L (0 +/- 2.5); CARBOXYHEMOGLOBIN 1.2 % (0-3); HCO3 (ACTUAL BICARBONATE) 28.1 MEQ/L (23-27); HEMOBLOGIN CONTENT 12.3 G/DL (12-16); INSTRUMENT SERIAL # 8083; METHEMOGLOBIN 0.1 % (0-3); O2 CONTENT 16.8 VOL% (18-24); PCO2 (CO2 TENSION) 46 MMHG (35-45); PO2 (O2 TENSION) 100 MMHG (79-93); SAMPLE Arterial; pH 7.41 (7.37-7.43)
[2016-07-07 14:29] LABS: DEVICE NC
[2016-07-08 08:46] LABS: BASOPHILS 0.1 %; BASOPHILS ABSOLUTE 0.01 10/3/uL (0.0-0.16); EOSINOPHILS 1.8 %; EOSINOPHILS ABSOLUTE 0.21 10/3/uL (0.0-0.53); HEMATOCRIT 34.7 % (36.0-48.0); HEMOGLOBIN 10.8 g/dL (12.0-16.0); IMMATURE GRANULOCYTES 0.3 %; IMMATURE GRANULOCYTES ABSOLUTE 0.04 10/3/uL (0.0-0.11); LYMPHOCYTES 6.1 %; LYMPHOCYTES ABSOLUTE 0.72 10/3/uL (0.67-4.30); MANUAL DIFF NO %; MEAN CORPUS HGB CONC 31.1 g/dL (32.0-36.0); MEAN CORPUSCULAR HEMOGLOB 33.5 pg (26.0-34.0); MEAN CORPUSCULAR VOLUME 107.8 fL (80-100); MEAN PLATELET VOLUME 11.1 fL (9.2-13.0); MONOCYTES 7.5 %; MONOCYTES ABSOLUTE 0.88 10/3/uL (0.21-1.20); NEUTROPHILS 84.2 %; PLATELET COUNT 170 10/3/uL (150-400); RBC DISTRIBUTION WIDTH 16.4 % (12.0-16.0); RED CELL COUNT 3.22 10/6/uL (4.0-5.6); WHITE BLOOD CELLS 11.8 10/3/uL (4.5-10.5)
[2016-07-08 08:53] LABS: ALBUMIN 2.7 G/DL (3.5-5.0); CALCIUM, SERUM 9.9 MG/DL (8.5-10.4); CHLORIDE, SERUM 101 MMOL/L (96-112); CO2 (CARBON DIOXIDE) 30 MMOL/L (24-34); GLUCOSE, SERUM 257 MG/DL (60-99); PHOSPHORUS, SERUM 4.2 MG/DL (2.5-4.5); POTASSIUM, SERUM 5.1 MMOL/L (3.5-5.3); SODIUM, SERUM 141 MMOL/L (135-148)
[2016-07-08 08:54] LABS: BUN (BLOOD UREA NITROGEN) 96 MG/DL (6-23); CREATININE 7.17 MG/DL (0.55-1.02); GFR AFRICAN AMERICAN 6 ML/MIN (>=60); GFR NON AFRICAN AMERICAN 5 ML/MIN (>=60)
[2016-07-09 06:34] LABS: BASOPHILS 0.2 %; BASOPHILS ABSOLUTE 0.02 10/3/uL (0.0-0.16); EOSINOPHILS ABSOLUTE 0.26 10/3/uL (0.0-0.53); HEMATOCRIT 36.9 % (36.0-48.0); HEMOGLOBIN 11.4 g/dL (12.0-16.0); IMMATURE GRANULOCYTES 0.7 %; IMMATURE GRANULOCYTES ABSOLUTE 0.09 10/3/uL (0.0-0.11); LYMPHOCYTES 8.9 %; LYMPHOCYTES ABSOLUTE 1.13 10/3/uL (0.67-4.30); MEAN CORPUS HGB CONC 30.9 g/dL (32.0-36.0); MEAN CORPUSCULAR HEMOGLOB 33.2 pg (26.0-34.0); MEAN CORPUSCULAR VOLUME 107.6 fL (80-100); MEAN PLATELET VOLUME 11.4 fL (9.2-13.0); MONOCYTES ABSOLUTE 1.14 10/3/uL (0.21-1.20); NEUTROPHILS 79.2 %; NEUTROPHILS ABSOLUTE 10.08 10/3/uL (2.02-8.40); PLATELET COUNT 196 10/3/uL (150-400); RBC DISTRIBUTION WIDTH 16.5 % (12.0-16.0); RED CELL COUNT 3.43 10/6/uL (4.0-5.6); WHITE BLOOD CELLS 12.7 10/3/uL (4.5-10.5)
[2016-07-09 06:36] LABS: MANUAL DIFF NO %
[2016-07-09 06:45] LABS: ALBUMIN 2.8 G/DL (3.5-5.0); CALCIUM, SERUM 10.2 MG/DL (8.5-10.4); CHLORIDE, SERUM 101 MMOL/L (96-112); CO2 (CARBON DIOXIDE) 26 MMOL/L (24-34); GLUCOSE, SERUM 221 MG/DL (60-99); POTASSIUM, SERUM 4.6 MMOL/L (3.5-5.3); SODIUM, SERUM 138 MMOL/L (135-148)
[2016-07-09 06:46] LABS: BUN (BLOOD UREA NITROGEN) 64 MG/DL (6-23); CREATININE 4.68 MG/DL (0.55-1.02); GFR AFRICAN AMERICAN 10 ML/MIN (>=60); GFR NON AFRICAN AMERICAN 9 ML/MIN (>=60); PHOSPHORUS, SERUM 2.7 MG/DL (2.5-4.5)
[2016-07-10 08:40] LABS: BASOPHILS 0.2 %; BASOPHILS ABSOLUTE 0.02 10/3/uL (0.0-0.16); EOSINOPHILS 3.9 %; EOSINOPHILS ABSOLUTE 0.32 10/3/uL (0.0-0.53); HEMATOCRIT 35.4 % (36.0-48.0); HEMOGLOBIN 11.2 g/dL (12.0-16.0); IMMATURE GRANULOCYTES 0.9 %; IMMATURE GRANULOCYTES ABSOLUTE 0.07 10/3/uL (0.0-0.11); LYMPHOCYTES 12.2 %; MEAN CORPUS HGB CONC 31.6 g/dL (32.0-36.0); MEAN CORPUSCULAR HEMOGLOB 33.3 pg (26.0-34.0); MEAN CORPUSCULAR VOLUME 105.4 fL (80-100); MEAN PLATELET VOLUME 11.3 fL (9.2-13.0); MONOCYTES ABSOLUTE 0.74 10/3/uL (0.21-1.20); NEUTROPHILS 73.8 %; NEUTROPHILS ABSOLUTE 6.08 10/3/uL (2.02-8.40); PLATELET COUNT 168 10/3/uL (150-400); RBC DISTRIBUTION WIDTH 15.8 % (12.0-16.0); RED CELL COUNT 3.36 10/6/uL (4.0-5.6); WHITE BLOOD CELLS 8.2 10/3/uL (4.5-10.5)
[2016-07-10 08:41] LABS: MANUAL DIFF NO %
[2016-07-10 09:13] LABS: ALBUMIN 2.8 G/DL (3.5-5.0); CALCIUM, SERUM 10.1 MG/DL (8.5-10.4); CHLORIDE, SERUM 96 MMOL/L (96-112); CO2 (CARBON DIOXIDE) 29 MMOL/L (24-34); POTASSIUM, SERUM 4.9 MMOL/L (3.5-5.3); SODIUM, SERUM 135 MMOL/L (135-148)
[2016-07-10 09:14] LABS: BUN (BLOOD UREA NITROGEN) 89 MG/DL (6-23); CREATININE 6.04 MG/DL (0.55-1.02); GFR AFRICAN AMERICAN 7 ML/MIN (>=60); GFR NON AFRICAN AMERICAN 6 ML/MIN (>=60); GLUCOSE, SERUM 93 MG/DL (60-99); PHOSPHORUS, SERUM 7.5 MG/DL (2.5-4.5)
[2016-07-11 06:23] LABS: BASOPHILS 0.1 %; BASOPHILS ABSOLUTE 0.01 10/3/uL (0.0-0.16); EOSINOPHILS 3.4 %; EOSINOPHILS ABSOLUTE 0.29 10/3/uL (0.0-0.53); HEMATOCRIT 34.4 % (36.0-48.0); HEMOGLOBIN 11.1 g/dL (12.0-16.0); IMMATURE GRANULOCYTES ABSOLUTE 0.17 10/3/uL (0.0-0.11); LYMPHOCYTES 10.9 %; LYMPHOCYTES ABSOLUTE 0.93 10/3/uL (0.67-4.30); MANUAL DIFF NO %; MEAN CORPUS HGB CONC 32.3 g/dL (32.0-36.0); MEAN CORPUSCULAR HEMOGLOB 33.3 pg (26.0-34.0); MEAN CORPUSCULAR VOLUME 103.3 fL (80-100); MONOCYTES ABSOLUTE 1.02 10/3/uL (0.21-1.20); NEUTROPHILS 71.6 %; NEUTROPHILS ABSOLUTE 6.08 10/3/uL (2.02-8.40); PLATELET COUNT 167 10/3/uL (150-400); RED CELL COUNT 3.33 10/6/uL (4.0-5.6); WHITE BLOOD CELLS 8.5 10/3/uL (4.5-10.5)
[2016-07-11 06:49] LABS: CHLORIDE, SERUM 100 MMOL/L (96-112); GLUCOSE, SERUM 97 MG/DL (60-99); POTASSIUM, SERUM 4.6 MMOL/L (3.5-5.3); SODIUM, SERUM 135 MMOL/L (135-148)
[2016-07-11 06:50] LABS: BUN (BLOOD UREA NITROGEN) 43 MG/DL (6-23); CO2 (CARBON DIOXIDE) 23 MMOL/L (24-34); CREATININE 4.16 MG/DL (0.55-1.02); GFR AFRICAN AMERICAN 11 ML/MIN (>=60); GFR NON AFRICAN AMERICAN 10 ML/MIN (>=60); ULTRASENSITIVE TSH 0.459 MCIU/ML (0.358-3.740)
[2016-07-12 08:29] LABS: BASOPHILS 0.1 %; BASOPHILS ABSOLUTE 0.01 10/3/uL (0.0-0.16); EOSINOPHILS 3.6 %; EOSINOPHILS ABSOLUTE 0.33 10/3/uL (0.0-0.53); HEMATOCRIT 33.4 % (36.0-48.0); HEMOGLOBIN 10.8 g/dL (12.0-16.0); IMMATURE GRANULOCYTES 2.5 %; IMMATURE GRANULOCYTES ABSOLUTE 0.23 10/3/uL (0.0-0.11); LYMPHOCYTES 10.3 %; LYMPHOCYTES ABSOLUTE 0.95 10/3/uL (0.67-4.30); MANUAL DIFF NO %; MEAN CORPUS HGB CONC 32.3 g/dL (32.0-36.0); MEAN CORPUSCULAR VOLUME 102.1 fL (80-100); MEAN PLATELET VOLUME 11.3 fL (9.2-13.0); MONOCYTES 11.5 %; MONOCYTES ABSOLUTE 1.06 10/3/uL (0.21-1.20); NEUTROPHILS ABSOLUTE 6.65 10/3/uL (2.02-8.40); PLATELET COUNT 185 10/3/uL (150-400); RBC DISTRIBUTION WIDTH 15.6 % (12.0-16.0); RED CELL COUNT 3.27 10/6/uL (4.0-5.6); WHITE BLOOD CELLS 9.2 10/3/uL (4.5-10.5)
[2016-07-12 08:53] LABS: ALBUMIN 3.3 G/DL (3.5-5.0); BUN (BLOOD UREA NITROGEN) 62 MG/DL (6-23); CALCIUM, SERUM 9.8 MG/DL (8.5-10.4); CHLORIDE, SERUM 96 MMOL/L (96-112); CO2 (CARBON DIOXIDE) 25 MMOL/L (24-34); CREATININE 5.82 MG/DL (0.55-1.02); GFR AFRICAN AMERICAN 8 ML/MIN (>=60); GFR NON AFRICAN AMERICAN 7 ML/MIN (>=60); GLUCOSE, SERUM 151 MG/DL (60-99); PHOSPHORUS, SERUM 4.5 MG/DL (2.5-4.5); POTASSIUM, SERUM 4.2 MMOL/L (3.5-5.3); SODIUM, SERUM 134 MMOL/L (135-148)
[2016-07-13 06:22] LABS: CPK 23 U/L (0-200)
[2016-07-13 06:31] LABS: RHEUMATOID FACTOR QUANT < 10 IU/ML (0-15)
[2016-07-15 07:32] LABS: ANGIOTENSIN-CONVERTING ENZYME 23 U/L (4-60)
[2016-07-15 08:08] LABS: ANA PATTERN SPECKLED; ANA TITER 1:40 TITER
[2016-07-15 16:10] LABS: HEMATOCRIT 34.4 % (36.0-48.0); HEMOGLOBIN 11.3 g/dL (12.0-16.0); MEAN CORPUS HGB CONC 32.8 g/dL (32.0-36.0); MEAN CORPUSCULAR HEMOGLOB 32.9 pg (26.0-34.0); MEAN CORPUSCULAR VOLUME 100.3 fL (80-100); MEAN PLATELET VOLUME 11.2 fL (9.2-13.0); PLATELET COUNT 210 10/3/uL (150-400); RED CELL COUNT 3.43 10/6/uL (4.0-5.6)
[2016-07-15 16:15] LABS: MANUAL DIFF YES %; WHITE BLOOD CELLS 19.4 10/3/uL (4.5-10.5)
[2016-07-15 16:24] LABS: BUN (BLOOD UREA NITROGEN) 127 MG/DL (6-23); CALCIUM, SERUM 10.1 MG/DL (8.5-10.4); CHLORIDE, SERUM 92 MMOL/L (96-112); CO2 (CARBON DIOXIDE) 23 MMOL/L (24-34); CREATININE 6.92 MG/DL (0.55-1.02); GFR AFRICAN AMERICAN 6 ML/MIN (>=60); GFR NON AFRICAN AMERICAN 5 ML/MIN (>=60); GLUCOSE, SERUM 224 MG/DL (60-99); PHOSPHORUS, SERUM 4.1 MG/DL (2.5-4.5); POTASSIUM, SERUM 5.1 MMOL/L (3.5-5.3); SODIUM, SERUM 131 MMOL/L (135-148)
[2016-07-15 17:01] LABS: BAND NEUTROPHILS 8 %; LYMPHOCYTES 6 %; LYMPHOCYTES ABSOLUTE (CALC) 1.16 10/3/uL (0.67-4.30); MONOCYTES 4 %; MONOCYTES ABSOLUTE (CALC) 0.78 10/3/uL (0.21-1.20); NEUTROPHILS ABSOLUTE (CALC) 17.46 10/3/uL (2.02-8.40); SEGMENTED NEUTROPHIL (0) 82 %; TOTAL NUCLEATED CELLS 100
[2016-07-15 17:02] LABS: MACROCYTES 1+ (5-10/OIF) (0-5/OIF); PLATELET ESTIMATE ADQ (ADEQUATE)
[2016-07-15 17:03] LABS: POLYCHROMASIA 1+ (2-5/OIF) (0-1/OIF)
[2016-07-15 18:39] LABS: THYROID PEROXIDASE AUTO AB 0.8 IU/mL (0.0-9.0)
[2016-07-15 20:02] LABS: THYROGLOBULIN AUTO ANTIBODY <0.9 IU/mL (0.0-4.0)
[2016-07-15 22:43] LABS: ANCA <1:20 (()); MYELOPEROXIDASE ANTIBODY <0.2 AI (<1.0); PROTEINASE 3 ANTIBODY <0.2 AI (<1.0)
[2016-07-16 06:07] LABS: HEMATOCRIT 34.7 % (36.0-48.0); HEMOGLOBIN 11.2 g/dL (12.0-16.0); MEAN CORPUS HGB CONC 32.3 g/dL (32.0-36.0); MEAN CORPUSCULAR HEMOGLOB 33.6 pg (26.0-34.0); PLATELET COUNT 188 10/3/uL (150-400); RBC DISTRIBUTION WIDTH 15.3 % (12.0-16.0); RED CELL COUNT 3.33 10/6/uL (4.0-5.6)
[2016-07-16 06:11] LABS: MANUAL DIFF YES %; MEAN CORPUSCULAR VOLUME 104.2 fL (80-100)
[2016-07-16 06:25] LABS: BUN (BLOOD UREA NITROGEN) 68 MG/DL (6-23); CALCIUM, SERUM 9.3 MG/DL (8.5-10.4); CHLORIDE, SERUM 103 MMOL/L (96-112); CO2 (CARBON DIOXIDE) 25 MMOL/L (24-34); CREATININE 3.99 MG/DL (0.55-1.02); GFR AFRICAN AMERICAN 12 ML/MIN (>=60); GFR NON AFRICAN AMERICAN 10 ML/MIN (>=60); GLUCOSE, SERUM 231 MG/DL (60-99); POTASSIUM, SERUM 4.4 MMOL/L (3.5-5.3); SODIUM, SERUM 138 MMOL/L (135-148)
[2016-07-16 07:42] LABS: BAND NEUTROPHILS 11 %; IMMATURE GRANS ABSOLUTE (CALC) 0.17 10/3/uL (0.0-0.11); LYMPHOCYTES 6 %; LYMPHOCYTES ABSOLUTE (CALC) 1.02 10/3/uL (0.67-4.30); MACROCYTES 1+ (5-10/OIF) (0-5/OIF); METAMYELOCYTES 1 %; MONOCYTES 9 %; MONOCYTES ABSOLUTE (CALC) 1.53 10/3/uL (0.21-1.20); NEUTROPHILS ABSOLUTE (CALC) 14.28 10/3/uL (2.02-8.40); PLATELET ESTIMATE ADQ (ADEQUATE); SEGMENTED NEUTROPHIL (0) 73 %; TOTAL NUCLEATED CELLS 100
[2016-07-16 07:43] LABS: TOXIC GRANULATION 1+
[2016-07-16 09:53] LABS: ANTI SS-A NEGATIVE (NEGATIVE); ANTI SS-B NEGATIVE (NEGATIVE)
[2016-07-17 07:58] LABS: HEMOGLOBIN 9.9 g/dL (12.0-16.0); MEAN CORPUS HGB CONC 33.3 g/dL (32.0-36.0); MEAN CORPUSCULAR VOLUME 102.1 fL (80-100); MEAN PLATELET VOLUME 11.1 fL (9.2-13.0); PLATELET COUNT 162 10/3/uL (150-400); RBC DISTRIBUTION WIDTH 15.1 % (12.0-16.0); RED CELL COUNT 2.91 10/6/uL (4.0-5.6); WHITE BLOOD CELLS 14.9 10/3/uL (4.5-10.5)
[2016-07-17 08:02] LABS: HEMATOCRIT 29.7 % (36.0-48.0); MANUAL DIFF YES %
[2016-07-17 08:10] LABS: ALBUMIN 2.6 G/DL (3.5-5.0); CALCIUM, SERUM 9.5 MG/DL (8.5-10.4); CHLORIDE, SERUM 99 MMOL/L (96-112); CO2 (CARBON DIOXIDE) 24 MMOL/L (24-34); GFR AFRICAN AMERICAN 8 ML/MIN (>=60); GFR NON AFRICAN AMERICAN 7 ML/MIN (>=60); GLUCOSE, SERUM 215 MG/DL (60-99); PHOSPHORUS, SERUM 3.2 MG/DL (2.5-4.5); POTASSIUM, SERUM 4.9 MMOL/L (3.5-5.3); SODIUM, SERUM 136 MMOL/L (135-148)
[2016-07-17 08:11] LABS: CREATININE 5.38 MG/DL (0.55-1.02)
[2016-07-17 08:18] LABS: BAND NEUTROPHILS 3 %; IMMATURE GRANS ABSOLUTE (CALC) 0.15 10/3/uL (0.0-0.11); LYMPHOCYTES 4 %; MACROCYTES 1+ (5-10/OIF) (0-5/OIF); METAMYELOCYTES 1 %; MONOCYTES 2 %; NEUTROPHILS ABSOLUTE (CALC) 13.86 10/3/uL (2.02-8.40); PLATELET ESTIMATE ADQ (ADEQUATE); SEGMENTED NEUTROPHIL (0) 90 %; TOTAL NUCLEATED CELLS 100
[2016-07-17 08:24] LABS: BUN (BLOOD UREA NITROGEN) 108 MG/DL (6-23)
[2016-07-18 06:54] LABS: HEMATOCRIT 29.2 % (36.0-48.0); HEMOGLOBIN 9.5 g/dL (12.0-16.0); MEAN CORPUS HGB CONC 32.5 g/dL (32.0-36.0); MEAN CORPUSCULAR HEMOGLOB 33.7 pg (26.0-34.0); MEAN CORPUSCULAR VOLUME 103.5 fL (80-100); PLATELET COUNT 167 10/3/uL (150-400); RBC DISTRIBUTION WIDTH 15.2 % (12.0-16.0); RED CELL COUNT 2.82 10/6/uL (4.0-5.6); WHITE BLOOD CELLS 12.2 10/3/uL (4.5-10.5)
[2016-07-18 06:56] LABS: MANUAL DIFF YES %
[2016-07-18 10:31] LABS: BAND NEUTROPHILS 8 %; LYMPHOCYTES 12 %; LYMPHOCYTES ABSOLUTE (CALC) 2.07 10/3/uL (0.67-4.30); MONOCYTES 11 %; MONOCYTES ABSOLUTE (CALC) 1.34 10/3/uL (0.21-1.20); NEUTROPHILS ABSOLUTE (CALC) 8.78 10/3/uL (2.02-8.40); SEGMENTED NEUTROPHIL (0) 69 %; TOTAL NUCLEATED CELLS 100
[2016-07-18 10:33] LABS: TEARDROP SHAPED RBCS OCC (0-2/OIF)
[2016-07-18 10:34] LABS: PLATELET ESTIMATE ADQ (ADEQUATE)
[2016-07-18 10:35] LABS: SCHISTOCYTES OCC (0-2/OIF)
[2016-07-18 13:18] LABS: ANTI-DNA FARR TECHNIQUE <1.0 IU/mL (<8.0)
[2016-07-18 17:02] LABS: HEMATOCRIT 28.4 % (36.0-48.0); HEMOGLOBIN 9.2 g/dL (12.0-16.0)
[2016-07-19 08:10] LABS: HEMATOCRIT 28.4 % (36.0-48.0); HEMOGLOBIN 9.3 g/dL (12.0-16.0); MANUAL DIFF YES %; MEAN CORPUS HGB CONC 32.7 g/dL (32.0-36.0); MEAN CORPUSCULAR HEMOGLOB 33.7 pg (26.0-34.0); MEAN CORPUSCULAR VOLUME 102.9 fL (80-100); MEAN PLATELET VOLUME 10.9 fL (9.2-13.0); PLATELET COUNT 148 10/3/uL (150-400); RBC DISTRIBUTION WIDTH 15.2 % (12.0-16.0); RED CELL COUNT 2.76 10/6/uL (4.0-5.6); WHITE BLOOD CELLS 9.1 10/3/uL (4.5-10.5)
[2016-07-19 08:29] LABS: BAND NEUTROPHILS 8 %; IMMATURE GRANS ABSOLUTE (CALC) 0.27 10/3/uL (0.0-0.11); LYMPHOCYTES 2 %; LYMPHOCYTES ABSOLUTE (CALC) 0.18 10/3/uL (0.67-4.30); MACROCYTES 1+ (5-10/OIF) (0-5/OIF); METAMYELOCYTES 3 %; MONOCYTES 5 %; MONOCYTES ABSOLUTE (CALC) 0.46 10/3/uL (0.21-1.20); NEUTROPHILS ABSOLUTE (CALC) 8.19 10/3/uL (2.02-8.40); NUCLEATED RED BLOOD CELLS 1 /100WBC (0); PLATELET ESTIMATE SLT DEC (ADEQUATE); SEGMENTED NEUTROPHIL (0) 82 %; TOTAL NUCLEATED CELLS 100
[2016-07-19 08:33] LABS: ALBUMIN 2.9 G/DL (3.5-5.0); BUN (BLOOD UREA NITROGEN) 96 MG/DL (6-23); CALCIUM, SERUM 9.4 MG/DL (8.5-10.4); CHLORIDE, SERUM 103 MMOL/L (96-112); CO2 (CARBON DIOXIDE) 25 MMOL/L (24-34); GFR AFRICAN AMERICAN 9 ML/MIN (>=60); GFR NON AFRICAN AMERICAN 8 ML/MIN (>=60); GLUCOSE, SERUM 94 MG/DL (60-99); PHOSPHORUS, SERUM 4.7 MG/DL (2.5-4.5); POTASSIUM, SERUM 4.5 MMOL/L (3.5-5.3); SODIUM, SERUM 138 MMOL/L (135-148)
== END 2016-07-19 14:59 | disposition hospice, home (50) | DRG 91 ==
LOC: ER 14:03 → 4SO 19:24
PROVIDERS: Emergency Medicine; Internal Medicine Nephrology; Nurse Practitioner; Nurse Practitioner Family; Psychiatry & Neurology Neurology; Registered Nurse
PROC: 5A1D60Z (ICD-10-PCS; 2016-07-05)
PROC: 0D20XUZ Change Feeding Device in Upper Intestinal Tract, External Approach (ICD-10-PCS; principal; 2016-07-15)
DX: G25.3 Myoclonus (principal); N18.6 End stage renal disease; I13.2 Hypertensive heart and chronic kidney disease with heart failure and with stage 5 chronic kidney disease, or end stage renal disease; G93.41 Metabolic encephalopathy; E11.22 Type 2 diabetes mellitus with diabetic chronic kidney disease; E11.42 Type 2 diabetes mellitus with diabetic polyneuropathy; I48.2 Chronic atrial fibrillation; G24.01 Drug induced subacute dyskinesia; I50.42 Chronic combined systolic (congestive) and diastolic (congestive) heart failure; Z51.5 Encounter for palliative care; Z66 Do not resuscitate; E87.5 Hyperkalemia; G47.33 Obstructive sleep apnea (adult) (pediatric); J44.9 Chronic obstructive pulmonary disease, unspecified; E66.9 Obesity, unspecified; Z99.2 Dependence on renal dialysis; I34.0 Nonrheumatic mitral (valve) insufficiency; E03.9 Hypothyroidism, unspecified; Z79.4 Long term (current) use of insulin; Z79.899 Other long term (current) drug therapy; Z91.19 Patient's noncompliance with other medical treatment and regimen; Z87.01 Personal history of pneumonia (recurrent); Z87.440 Personal history of urinary (tract) infections; Z88.0 Allergy status to penicillin; Z88.2 Allergy status to sulfonamides; Z88.8 Allergy status to other drugs, medicaments and biological substances; Z79.82 Long term (current) use of aspirin; Z79.51 Long term (current) use of inhaled steroids; R13.10 Dysphagia, unspecified; K59.00 Constipation, unspecified; T45.0X5A Adverse effect of antiallergic and antiemetic drugs, initial encounter; Z68.33 Body mass index [BMI] 33.0-33.9, adult; K94.29 Other complications of gastrostomy; Y83.3 Surgical operation with formation of external stoma as the cause of abnormal reaction of the patient, or of later complication, without mention of misadventure at the time of the procedure; D63.1 Anemia in chronic kidney disease
CPT/HCPCS: 36600; 49465; 70450; 70551; 71010; 74000; 80048; 80053; 80069; 80076; 82140; 82164; 82248; 82272; 82306; 82550; 82607; 82746; 82805; 82962; 83516; 83516-59; 83735; 84145; 84443; 85014; 85018; 85025; 85610; 85652; 86039; 86141; 86225; 86226; 86235; 86235-59; 86255; 86376; 86431; 86592; 86800; 87040; 87045; 87046; 87046-59; 87328; 87329; 87389; 87493; 87493-59; 87899; 87899-59; 89055; 92610-GN; 93005; 94640; 95819; 97110-GP; 97161-GP; 97530-GP; 99285; A9270-GY; C9113; G0257; G8978-CL-GP; G8979-CK-GP; G8996-CN-GN; G8997-CN-GN; G8998-CN-GN; J1885; J1953; J2405; J2930; J2997; J3370; J3411; P9047